=== PATIENT | female | born 1970 | race Caucasian/White ===

== ENCOUNTER 2020-11-18 05:51 | Inpatient (IN) ==
--- NOTE | 2020-11-04 10:33 | PAT Medication Instructions ---
Medication Instructions Date of Service November 04, 2020 Home Medications albuterol sulfate 1.25 mg INHALATION QID PRN albuterol sulfate 2 inh INHALATION Q4H PRN aspirin [Aspir-81] 81 mg PO QAM duloxetine [Cymbalta] 60 mg PO QAM fluticasone propion-salmeterol [Wixela Inhub] 1 inh INHALATION BID galcanezumab-gnlm [Emgality Syringe] 120 mg SUBCUT MONTHLY metoprolol succinate 50 mg PO QAM nifedipine [Procardia XL] 30 mg PO BID omeprazole 40 mg PO BID sumatriptan succinate 100 mg PO UD PRN topiramate [Topamax] 50 mg PO HS Continue as directed galcanezumab-gnlm [Emgality Syringe] 120 mg SUBCUT MONTHLY (unless otherwise instructed by your prescriber) Take morning of surgery With a small sip of water, OTHERWISE NOTHING TO EAT OR DRINK AFTER MIDNIGHT: albuterol sulfate 1.25 mg INHALATION QID PRN (if needed) albuterol sulfate 2 inh INHALATION Q4H PRN (if needed, and bring with you to the hospital) aspirin [Aspir-81] 81 mg PO QAM duloxetine [Cymbalta] 60 mg PO QAM fluticasone propion-salmeterol [Wixela Inhub] 1 inh INHALATION BID metoprolol succinate 50 mg PO QAM nifedipine [Procardia XL] 30 mg PO BID omeprazole 40 mg PO BID sumatriptan succinate 100 mg PO UD PRN (if needed) Take evening before surgery albuterol sulfate 1.25 mg INHALATION QID PRN (if needed) albuterol sulfate 2 inh INHALATION Q4H PRN (if needed) fluticasone propion-salmeterol [Wixela Inhub] 1 inh INHALATION BID nifedipine [Procardia XL] 30 mg PO BID omeprazole 40 mg PO BID sumatriptan succinate 100 mg PO UD PRN (if needed) topiramate [Topamax] 50 mg PO HS Other Notes If you have any questions please call us at [phone] or [phone] or [phone] or [phone]
--- NOTE | 2020-11-04 11:10 | Anesthesiology Consultation ---
Date of Service November 04, 2020 Assessment & Plan (1) Encounter for pre-operative examination: COVID Status: As of 11/04 assessment, patient denies travel to endemic area, known exposure/sick contacts, or symptoms of COVID19. Patient advised to adhere to social distancing guidelines, wear a mask in public and avoid large crowds or unnecessary travel in the 2 weeks leading up to surgery. Preoperative COVID19 testing to be completed prior to surgery per surgeon's arrangements -- done 11/16/20, NEGATIVE. Patient was encouraged to be extra cautious/conscientious with COVID precautions between COVID testing and surgery. PCP clearance 10/28/2020Weerin Hoffmann "was seen in my office on 11/05/2020 and is medically cleared for surgery." Cardiology Office note 02/2020 --"hypertension by history but with TTT in 2018 suggestive of neurocardiogenic syncope, with ongoing lightheadedness that does not occur strictly with position changes, will lower dose of nifedipine to 30 mg daily but also recommend referral for YONAS given ongoing fatigue and headaches. Chest painatypical, normal coronaries by cath 2014, likely musculoskeletal in nature. Palpitationsimproved but she has elevated pulse on exam today. With shortness of breath will obtain 24-hour Holter to rule out SVT." Multiple attempts to obtain Holter report unsuccessful. Pt cleared by PCP and had normal rate/rhythm on EKG 10/2020. Did report palpitations occasionally but correlated with panic/anxiety. Reviewed with AMANDA Tse to proceed. Chart Review Chart Review: Acceptable Risk for Surgery and Patient seen in Pre Admission Testing Teaching & Discussion Instructed NPO after midnight before surgery, except medications with 15 cc of water. Medication instructions provided according to the PAT guidelines. History Surgery Operation Date: 11/18/20 07:45 Proposed Procedures p L4-S1 Decompression Fusion, Spinal Cord Monitoring - Hawk Awad, Height/Weight Height: 5 ft 3 in Weight: 79.1 kg Allergies Allergy/AdvReac Type Severity Reaction Status Date / Time bee venom protein (honey bee) Allergy Severe Anaphylaxis Verified 11/04/20 08:53 latex Allergy Severe Anaphylaxis Verified 11/04/20 08:53 Sulfa (Sulfonamide Allergy Intermediate Hives Verified 11/04/20 08:53 Antibiotics) corn Allergy Mild "severe Verified 11/04/20 08:53 stomach pains" Medications Home Medications Medication Instructions Recorded Confirmed Last Taken albuterol sulfate 1.25 mg INHALATION QID PRN 11/04/20 11/04/20 Unknown albuterol sulfate 2 inh INHALATION Q4H PRN 11/04/20 11/04/20 Unknown aspirin [Aspir-81] 81 mg PO QAM 11/04/20 11/04/20 Unknown duloxetine [Cymbalta] 60 mg PO QAM 11/04/20 11/04/20 Unknown fluticasone propion-salmeterol 1 inh INHALATION BID 11/04/20 11/04/20 Unknown [Wixela Inhub] galcanezumab-gnlm [Emgality 120 mg SUBCUT MONTHLY 11/04/20 11/04/20 Unknown Syringe] metoprolol succinate 50 mg PO QAM 11/04/20 11/04/20 Unknown nifedipine [Procardia XL] 30 mg PO BID 11/04/20 11/04/20 Unknown omeprazole 40 mg PO BID 11/04/20 11/04/20 Unknown sumatriptan succinate 100 mg PO UD PRN 11/04/20 11/04/20 Unknown topiramate [Topamax] 50 mg PO HS 11/04/20 11/04/20 Unknown Past Medical History Medical History Anxiety Asthma Wixela inhaler daily. Albuterol prn once daily on avg, only uses neb in humid summer months. 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 x1 @ [facility] [place]--no stents History of cholecystectomy History of colonoscopy History of dilatation and curettage x2 History of esophagogastroduodenoscopy (EGD) History of lobectomy of lung (~2013) portion of right lung removed d/t "being necrotic d/t Jorge Luis's granulomatosis"--received 3 rounds of chemo after (pt denies cancer) done at [place] History of microdiscectomy (~1996) L5-S1 History of shoulder surgery left--ganglion tumor removed at age 14 History of sinus surgery x3 History of tonsillectomy History of wisdom tooth extraction Past Anesthesia History No Hx of Anesthesia Complications (other than nausea) and No Family Hx of Anesthesia Complications (other than nausea) History of PONV No Hx of Motion Sickness and History of PONV (nausea only) Social History Smoking Status: Former smoker Do You Dip or Chew Tobacco: No Smoking End Date: quit 2009 Hx Alcohol Use: No Hx Substance Use: Yes (medical marijuana) substance use type: marijuana Review of Systems Pt denies any recent chest pain, cough, fever, URI, or uncontrolled acid reflux (mostly controlled with meds). +yesterday panic attack/overheated with SOB/palpitations Physical Exam Vital Signs BP: 121/79 P: 81bpm SPO2: 98% RA T: 97.8 F R: 16 ENMT Mouth: + dental bridge (lower L side) and + dental restorations (one crown and a bridge); no chipped teeth and no loose teeth Thyromental Distance: > or= 3.5 Finger Breadths Mallampati Class: II Neck normal visual inspection; neck extension not limited Respiratory normal respiratory effort, lungs clear to auscultation + prolonged expiratory phase Cardiovascular RRR, no murmur, no edema Lab Results Anesthesia Preop Results Results Anesthesia Widget: WBC 5.71 K/uL (4.8-10.8) 11/04/20 Hgb 13.4 g/dL (12.0-16.0) 11/04/20 Hct 39.8 % (37-47) 11/04/20 Plt 365 K/uL (130-400) 11/04/20 Na 138 mmol/L (136-145) 11/04/20 K 4.0 mmol/L (3.5-5.1) 11/04/20 Cl 109 mmol/L (98-107) H 11/04/20 CO2 26 mmol/L (21-32) 11/04/20 BUN 13 mg/dl (7-18) 11/04/20 Creat 0.85 mg/dl (0.6-1.2) 11/04/20 Glucose Level 81 mg/dl (70-99) 11/04/20 PT 9.8 Seconds (9.0-12.0) 11/04/20 PTT 26.4 Seconds (21.0-31.0) 11/04/20 INR 1.0 (0.9-1.1) 11/04/20 Urine Color Dark Yellow 11/04/20 Urine Appearance Clear (Clear) 11/04/20 Urine pH 5.5 (4.5-7.5) 11/04/20 Urine Specific [place] 1.024 (1.000-1.030) 11/04/20 Urine Protein Negative (Negative) 11/04/20 Urine Glucose (UA) Negative (Negative) 11/04/20 Urine Ketones Trace (Negative) H 11/04/20 Urine Blood Negative (Negative) 11/04/20 Urine Nitrite Negative (Negative) 11/04/20 Urine Bilirubin Negative (Negative) 11/04/20 Urine Urobilinogen Negative (Negative) 11/04/20 Urine Leukocyte Esterase Negative (Negative) 11/04/20 Blood Type O Positive 11/04/20 Antibody Screen NEGATIVE 11/04/20 Testing Electrocardiogram Date: 11/04/20 Findings: + NSR @ (77bpm) Poor R wave progression, consider anterior NC vs lead placement vs LVH. "Cannot rule out anterior infarct" also noted on 06/21/20 EKG. 2015 cath showed angiographically normal coronaries. Chest X-Ray Date: 11/04/20 FINDINGS: PA and lateral chest radiographs are obtained. No prior studies are available for comparison at the time of dictation. The cardiomediastinal silhouette is unremarkable. Findings suggest emphysema. No airspace consolidation or pleural effusion is identified. Scarring/atelectasis is noted at the lung bases. Suture material projects over the right lung base. There is no pneumothorax. The skeletal structures are osteopenic. The bony thorax appears intact. Degenerative change and scoliosis is noted in the thoracic spine. Cholecystectomy clips are seen in the right upper quadrant. IMPRESSION: 1. No active disease in the chest. 2. Emphysematous change is suggested and there is postoperative change at the right lung base. Correlate with the patient's surgical history. {Pt did have 2014 lobectomy.} Cardiac Catheterization Date: 02/05/15 Angiographically normal coronary arteries, normal left ventriculogram.
[2020-11-18] MEDS ORDERED: ACETAMINOPHEN 500 MG TAB PO SCH (06:00)
[2020-11-18] MEDS ORDERED: CeleBREX 200 MG CAP PO SCH (06:00)
[2020-11-18] MEDS ORDERED: CLINDAMYCIN 600 MG/54 ML BAG IV SCH (06:00)
[2020-11-18] MEDS ORDERED: GABAPENTIN 900 MG DOSE PO SCH (06:00)
[2020-11-18] MEDS ORDERED: LR 15ML/HR IV SCH (06:00)
[2020-11-18] MEDS ORDERED: methylPREDNISolone 80 MG in SYRINGE 0 ML IV ONE (06:30)
[2020-11-18] MEDS ORDERED: diphenhydrAMINE 50 MG/ML VIAL IV ONE (06:30)
[2020-11-18] MEDS ORDERED: FAMOTIDINE 20 MG in SYRINGE 3 ML IV ONE (06:30)
[2020-11-18] MEDS ORDERED: BUPIVACAINE/EPINEPHRINE 0.5% MPF 1:200,000 30 ML VIAL ONE (07:08)
[2020-11-18] MEDS ORDERED: ONDANSETRON INJ 2 MG/ML 2 ML VIAL ONE ×2 (07:09→08:25)
[2020-11-18] MEDS ORDERED: GLYCOPYRROLATE 0.2 MG/ML VIAL ONE ×2 (07:09→08:25)
[2020-11-18] MEDS ORDERED: PROPOFOL IV EMULSION 10 MG/ML 20 ML VIAL IV ONE (07:09)
[2020-11-18] MEDS ORDERED: DEXAMETHASONE SOD INJ 4 MG/ML VIAL ONE (07:09)
[2020-11-18] MEDS ORDERED: LIDOCAINE 2% 2 ML VIAL/AMP(20MG/ML) INFIL ONE (07:09)
[2020-11-18] MEDS ORDERED: MIDAZOLAM HCL 1 MG/ML 2ML VIAL ONE (07:09)
[2020-11-18] MEDS ORDERED: fentaNYL citrate 100 MCG/2 ML VIAL ONE (07:09)
[2020-11-18] MEDS ORDERED: NEOSTIGMINE METHYLSULFATE 1 MG/ML 10ML VIAL ONE (07:09)
[2020-11-18] MEDS ORDERED: SODIUM CHLORIDE 0.9% INJ 10 ML VIAL ONE (07:10)
[2020-11-18] MEDS ORDERED: HYDROmorphone INJ 2 MG/ML SYR/VIAL ONE (07:10)
[2020-11-18] MEDS ORDERED: ATROPINE SULFATE 0.1 MG/ML 10ML SYR IV PRN (07:17)
[2020-11-18] MEDS ORDERED: ONDANSETRON INJ 2 MG/ML 2 ML VIAL IV PRN ×2 (07:17→10:43)
[2020-11-18] MEDS ORDERED: ePHEDrine sulfate 50 MG/ML AMP IV PRN (07:17)
[2020-11-18] MEDS ORDERED: HYDROmorphone INJ 1 MG/ML SYRINGE IV PRN (07:17)
[2020-11-18] MEDS ORDERED: MoRPHine SULFATE 10 MG/ML CARP/VIAL IV PRN (07:17)
--- NOTE | 2020-11-18 07:27 | History & Physical Bridge Note ---
Date of Service November 18, 2020 History & Physical Bridge Note I have examined the patient, reviewed the History & Physical and in the interval since the performance of the History & Physical I have noted the following changes of clinical significance: no changes noted
--- NOTE | 2020-11-18 07:28 | History & Physical Report ---
Date of Service November 18, 2020 Assessment & Plan (1) Neurogenic claudication due to lumbar spinal stenosis: Admission and Anticipated Discharge Date Admission Date: L4-S1 decompression fusion History of Present Illness Chief Complaint: Back and leg pain Primary Care Provider: Alvaro Mark This is a 50-year-old female presents with chronic persistent back and leg pain. Failing extensive course of nonoperative care is here for surgical invention. Allergies Allergy/AdvReac Type Severity Reaction Status Date / Time bee venom protein (honey bee) Allergy Severe Anaphylaxis Verified 11/18/20 06:28 latex Allergy Severe Anaphylaxis Verified 11/18/20 06:28 Sulfa (Sulfonamide Allergy Intermediate Hives Verified 11/18/20 06:28 Antibiotics) corn Allergy Mild "severe Verified 11/18/20 06:28 stomach pains" Home Medications Medication Instructions Recorded Confirmed Type albuterol sulfate 1.25 mg INHALATION QID PRN 11/04/20 11/18/20 History albuterol sulfate 2 inh INHALATION Q4H PRN 11/04/20 11/18/20 History aspirin [Aspir-81] 81 mg PO QAM 11/04/20 11/18/20 History duloxetine [Cymbalta] 60 mg PO QAM 11/04/20 11/18/20 History fluticasone propion-salmeterol 1 inh INHALATION BID 11/04/20 11/18/20 History [Wixela Inhub] galcanezumab-gnlm [Emgality 120 mg SUBCUT MONTHLY 11/04/20 11/18/20 History Syringe] metoprolol succinate 50 mg PO QAM 11/04/20 11/18/20 History nifedipine [Procardia XL] 30 mg PO BID 11/04/20 11/18/20 History omeprazole 40 mg PO BID 11/04/20 11/18/20 History sumatriptan succinate 100 mg PO UD PRN 11/04/20 11/18/20 History topiramate [Topamax] 50 mg PO HS 11/04/20 11/18/20 History Past Med/Surg History Medical History Anxiety Asthma Wixela inhaler daily. Albuterol prn once daily on avg, only uses neb in humid summer months. 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 Xena Dardenr's granulomatosis Surgical History History of bilateral tubal ligation History of breast biopsy benign History of bunionectomy of left great toe History of bunionectomy of right great toe History of cardiac cath 2016? x1 @ [facility] [place]--no stents History of cholecystectomy History of colonoscopy History of dilatation and curettage x2 History of esophagogastroduodenoscopy (EGD) History of lobectomy of lung (~2013) portion of right lung removed d/t "being necrotic d/t Jorge Luis's granulomatosis"--received 3 rounds of chemo after (pt denies cancer) done at [place] History of microdiscectomy (~1996) L5-S1 History of shoulder surgery left--ganglion tumor removed at age 14 History of sinus surgery x3 History of tonsillectomy History of wisdom tooth extraction Family History Sister Family history of reaction to anesthesia nausea/vomiting Sister Family history of reaction to anesthesia nausea/vomiting Grandfather (Maternal) Family history of diabetes mellitus Social History Smoking Status: Former smoker Smoking End Date: quit 2009; Second Hand Exposure: Yes (grandma smoked); Do You Dip or Chew Tobacco: No; Tobacco Cessation Education Requested by Patient: No Hx Alcohol Use: No Hx Substance Use: Yes (medical marijuana) Preferred Language: [place]al[place] Communication Ability: Effective Promotions Assistant Required: No Beliefs That Will Affect Care: None Current Living Situation: Spouse and Family Current Living Situation Comment: Lives with and daughter and daughter's fiance Other Information That Helps Us Care for You: No Feels Safe at Home: Yes Safety Concerns: Feels Safe At This Time Assistive Devices: Cane, Glasses and Nebulizer Assistive Devices Comment: reading glasses Physical Exam Physical Exam: Patient is alert and oriented Heart regular in rhythm Lungs clear to auscultation Results & Data ([facility]) Vital Signs (Past 12 Hours) Vital Signs Temp Pulse Resp BP Pulse Ox 11/18/20 06:34 36.8 C 84 20 128/86 98
[2020-11-18] MEDS ORDERED: PHENYLEPHRINE 100MCG/ML 5ML SYR ONE (08:54)
[2020-11-18] MEDS ORDERED: ROCURONIUM BROMIDE 10 MG/ML 5 ML VIAL IV ONE (08:54)
[2020-11-18] MEDS ORDERED: PHENYLEPHRINE HCL 10 MG/ML VIAL ONE (08:54)
[2020-11-18] MEDS ORDERED: LARYING-O-JET KIT (LTA) ONE (08:54)
[2020-11-18] MEDS ORDERED: FLOSEAL HEMOSTATIC MATRIX 10ML TOP ONE (09:48)
--- NOTE | 2020-11-18 10:02 | Operative Report ---
Post Operative Report Pre & Post Diagnosis Operation Date: 11/18/20 07:45 Pre-Op Diagnosis: Spinal Stenosis Lumbar Region without Neurogenic Post-Op Diagnosis: Spinal Stenosis Lumbar Region without Neurogenic I identified the patient and participated in the time-out.: Yes Procedure Operation Date: 11/18/20 07:45 Actual procedure #1 revision decompression with bilateral medial facetectomies and foraminotomies L3-4, L4-5 and L5-S1. #2 posterior spinal fusion L4-5 L5-S1. #3 placement posterior instrumentation L4-5 L5-S1. #4 interbody fusion L4-5 L5-S1. #5 placement peek cage 11 x 22 mm at L for L5 and 12 x 22 mm at L5-S1. #6 placement locally harvested morselized autograft in the posterior gutters. #7 placement of I factor in the interbody space and posterior lateral gutters combined with Vitoss Surgeon Hawk Awad, DO Printing Services Coordinator Christy Davis Estimated Blood Loss 250 Findings See Below The patient is 5 feet 2 inches tall weighing over 79 kg with a BMI of 31. Patient's body habitus did contribute to significant technical difficulty requiring her deeper retractors and longer instruments. This at least 25% increase to the operative time. Specimens None Indications This is a 50-year-old female presents with above-mentioned diagnosis after failing course of nonoperative care is here for the above-mentioned procedure. Description of Procedure Patient met with identified informed consent obtained. Patient was then taken to the operative suite underwent ablation placed in a prone position the Jovanny table top Sabino frame. All bony prominences well-padded eyes inspected to ensure no external pressure placed upon the. This point the lumbar spine was prepped and draped in normal sterile fashion. Utilizing the previous incision site sharp dissection with the assistance of Bovie cautery performed down to and exposing the remaining lamina and transverse processes of L4-L5 and sacral ala bilaterally. From caudal cephalad fashion revision complete laminectomy L5 L4 partial laminectomy L3 was performed including bilateral medial facetectomies and foraminotomies addressing severe spinal stenosis. Pedicle screws then placed in L4-L5 and S1 levels with the assistance of fluoroscopy the proper sized fernando placed. I did elect to forego the pedicle screw on the left at L5. Appropriate sized rods were then placed. By way of a transforaminal portion right complete discectomy of L5-S1 was performed endplates curetted to subcortically bone and a 12 x 22 mm peek cage filled I factor tapped in position. Then proceeded L4-L5 and again by way of a transforaminal portion right a complete discectomy was performed endplates curetted to subcortically bone and 11 x 22 mm peek cage filled with I factor tapped in position. The rods were then locked in final position bilaterally. A cross-link was locked into position. Transverse processes of L4-L5 and the sacral ala burred to subcortical bleeding bone. I factor combined with the toss and locally harvested morselized autograft was placed in the posterior gutters. 15 round LAKISHA drain inserted. The incision was then closed with 1 Vicryl to fascia 2-0 Vicryl subcutaneously and 4 Monocryl for final skin closure. Steri-Strip sterile dressings placed. Patient will continue PACU stable condition. Please note spinal cord monitoring visualized at the procedure no changes noted. Ximena Davis was present at the entire surgery involved the patient positioning complex portions of the surgery and final skin closure. I attest to the content of the Intraoperative Record and any orders documented therein. Any exceptions are noted below.
[2020-11-18] MEDS ORDERED: METOCLOPRAMIDE HCL INJ 5 MG/ML 2 ML VIAL IV PRN (10:43)
[2020-11-18] MEDS ORDERED: LORazepam 0.5 MG/1 ML VIAL IV PRN (10:43)
[2020-11-18] MEDS ORDERED: HYDROmorphone INJ 0.5 MG/0.5 ML SYR IV PRN (10:43)
[2020-11-18] MEDS ORDERED: DO NOT ADMINISTER PNEUMOCOCCAL VACCINE PRN (10:43)
[2020-11-18] MEDS ORDERED: DO NOT ADMINISTER FLU VACCINE PRN (10:43)
[2020-11-18] MEDS ORDERED: ACETAMINOPHEN 500 MG TAB PO PRN (10:43)
[2020-11-18] MEDS ORDERED: ACETAMINOPHEN 1,000 MG/100 ML VIAL IV PRN (10:43)
[2020-11-18] MEDS ORDERED: FAMOTIDINE 20 MG TAB PO PRN (10:43)
[2020-11-18] MEDS ORDERED: SUMAtriptan succinate 100 MG TAB PO PRN (10:43)
[2020-11-18] MEDS ORDERED: MAGNESIUM HYDROXIDE SUSP 30 ML UDC PO PRN (10:43)
[2020-11-18] MEDS ORDERED: diphenhydrAMINE Capsule 25 MG CAP PO PRN (10:43)
[2020-11-18] MEDS ORDERED: SOD PHOSPHATE/SOD BIPHOSPHATE ENEMA 132 ML BTL PR PRN (10:43)
[2020-11-18] MEDS ORDERED: PROMETHAZINE HCL 12.5 MG in SODIUM CHLORIDE 0.9% 50 ML IV PRN (10:43)
[2020-11-18] MEDS ORDERED: hydrOXYzine HCl 25 MG TAB PO PRN (10:43)
[2020-11-18] MEDS ORDERED: ALUMINUM/MAGNESIUM SUSP 30 ML UDC PO PRN (10:43)
[2020-11-18] MEDS ORDERED: NALOXONE HCL 0.4 MG/1 ML VIAL/CARP IV PRN (10:43)
[2020-11-18] MEDS ORDERED: ONDANSETRON 4 MG OD TAB PO PRN (10:43)
[2020-11-18] MEDS ORDERED: ALBUTEROL HFA 8 GM INHALER INH PRN (10:59)
--- NOTE | 2020-11-18 10:59 | Anesthesiology Progress Note ---
Date of Service November 18, 2020 Anesthesia Post Procedure Vital Signs Vital Signs: Temp Pulse Pulse Resp BP BP Pulse Ox 11/18/20 10:55 97 H 14 103/70 96 11/18/20 10:45 90 20 97/60 L 98 11/18/20 10:35 95 H 12 96/61 L 99 11/18/20 10:25 94 H 16 98/67 L 99 11/18/20 10:19 36.1 C L 98 H 15 103/68 96 11/18/20 06:34 36.8 C 84 20 128/86 98 Transfer of Care Handoff Completed per policy Notes Mental Status: alert / awake / arousable and participated in evaluation Patient Amnestic to Procedure: Yes Nausea / Vomiting: adequately controlled Pain: adequately controlled Airway Patency, RR, SpO2: stable & adequate BP & HR: stable & adequate Hydration State: stable & adequate Anesthetic Complications: no major complications apparent and Pt Satisfied with anesthetic care
--- NOTE | 2020-11-18 11:07 | Fluoroscopy Report ---
FL lumbar spine 2-3V HISTORY: 50 years-old Female L4-S1 DECOMPRESSION/FUSION/INTERBODY COMPARISON: None TECHNIQUE: 2 views of the lumbar spine FINDINGS: Laminectomy with posterior interbody fernando and screw fusion and discectomy at L4-S1. The hardware appea rs intact. Linear radiodense structure projects in the surgical bed at L5-S1. Technologist reports th at the surgeon is aware. IMPRESSION: Fluoroscopic assistance as above. ACT 112: Negative or not required by law. The above report was generated using voice recognition software. It may contain grammatical, syntax o r spelling errors. Electronically signed by: Lino Sanches M.D. 11/18/2020 11:05 AM
[2020-11-18] MEDS: LACTATED RINGER'S 1,000 ML IV SCH (11:31)
[2020-11-18] MEDS ORDERED: ALBUTEROL 0.083% NEBU SOLN 3 ML VIAL NEB PRN (11:36)
[2020-11-18] MEDS: KETOROLAC TROMETHAMINE 15 MG/ML VIAL IV SCH ×2 (11:59→18:26)
--- NOTE | 2020-11-18 13:02 | Hospitalist Consultation ---
Date of Consultation November 18, 2020 Assessment & Plan (1) S/P spinal surgery: This is a 50yo F with a PMH of COPD, asthma, mood disorder, Jorge Luis's granulomatosis and other medical problems listed below who is POD#0 s/p revision decompression with bilateral medial facetectomies and foraminotomies L3-4, L4-5 and L5-S1 and posterior spinal fusion L4-5 L5-S1 by Dr. Awad. POD#0 s/p revision decompression with bilateral medial facetectomies and foraminotomies L3-4, L4-5 and L5-S1 and posterior spinal fusion L4-5 L5-S1 by Dr. Awad. Per ortho for pain control, wound care, anticoagulation and activities Monitor H&H (EBL: 250ml, pre-op hgb 13.4) Continue incentive spirometry, PT/OT when appropriate (2) Hypertension: Hypotensive at 95/66 post-operatively. Continue Toprol, Procardia with hold parameters (3) Chronic obstructive pulmonary disease: (4) Asthma: H/o tobacco use x 10 years, has since quit. Continue Wixela inh BID, albuterol inh and nebs PRN (5) Jorge Luis's granulomatosis: Follows with Dr. Alcantar, rheumatology in [place] (6) Migraine: Topomax HS and monthly Emgality injections for prophylaxis, sumatriptan PRN (7) Depression: (8) Anxiety: Continue duloxetine PCP: eDedee Kerns) Dispo: Per ortho Patient seen in collaboration with Dr. Bui. Please see addendum. Thank you for this consultation. We will follow the patient with you during their hospital stay. You can reach a member of the [facility] Hospitalist Team 01/01 via [place] Text. Supervising Physician Co-Signing Physician Notes 50yo F with a PMH of COPD, asthma, mood disorder, Jorge Luis's granulomatosis and other medical problems who is POD#0 s/p revision decompression with bilateral medial facetectomies and foraminotomies L3-4, L4-5 and L5-S1 and posterior spinal fusion L4-5 L5-S1 by Dr. Awad today History and physical exam performed by me Detailed by Anaid Rivera PA-C Patient currently has no complaint Reports some paraesthesia in left LE but no pain at surgical site at this point Op site management per Ortho BP running low normal Hold antihypertensives for today and resume tomorrow Continue IVF Pain control per ortho Keep nation in for today Other plans as detailed by Anaid Rivera PA-C History of Present Illness Reason for Consultation: post op medical mgmt Attending Physician: Hawk Awad DO History of Present Illness This is a 50yo F with a PMH of COPD, asthma, mood disorder, Jorge Luis's granulomatosis and other medical problems listed below who is POD#0 s/p revision decompression with bilateral medial facetectomies and foraminotomies L3-4, L4-5 and L5-S1 and posterior spinal fusion L4-5 L5-S1 by Dr. Awad. Feeling very lethargic postoperatively. Was premedicated for anaphylactic Lasix allergy prior to surgery. Per nursing staff, patient is much more alert than when she initially came to the floor. Able to open eyes and answer questions appropriately during interview. Denies any surgical site pain. No pain or paresthesias in distal lower extremities. Denies any chest pain or shortness of breath. Not much of an appetite at this point was able take a few bites of lunch. No fever, chills, headache, palpitations, nausea, vomiting, abdominal pain, dysuria, diarrhea constipation. Receives primary care from Dr. Mark based in [place]. Allergies Allergy/AdvReac Type Severity Reaction Status Date / Time bee venom protein (honey bee) Allergy Severe Anaphylaxis Verified 11/18/20 06:28 latex Allergy Severe Anaphylaxis Verified 11/18/20 06:28 Sulfa (Sulfonamide Allergy Intermediate Hives Verified 11/18/20 06:28 Antibiotics) corn Allergy Mild "severe Verified 11/18/20 06:28 stomach pains" Home Medications Medication Instructions Recorded Confirmed Type albuterol sulfate 1.25 mg INHALATION QID PRN 11/04/20 11/18/20 History albuterol sulfate 2 inh INHALATION Q4H PRN 11/04/20 11/18/20 History aspirin [Aspir-81] 81 mg PO QAM 11/04/20 11/18/20 History duloxetine [Cymbalta] 60 mg PO QAM 11/04/20 11/18/20 History fluticasone propion-salmeterol 1 inh INHALATION BID 11/04/20 11/18/20 History [Wixela Inhub] galcanezumab-gnlm [Emgality 120 mg SUBCUT MONTHLY 11/04/20 11/18/20 History Syringe] metoprolol succinate 50 mg PO QAM 11/04/20 11/18/20 History nifedipine [Procardia XL] 30 mg PO BID 11/04/20 11/18/20 History omeprazole 40 mg PO BID 11/04/20 11/18/20 History sumatriptan succinate 100 mg PO UD PRN 11/04/20 11/18/20 History topiramate [Topamax] 50 mg PO HS 11/04/20 11/18/20 History Patient History Medical History Anxiety Asthma Wixela inhaler daily. Albuterol prn once daily on avg, only uses neb in humid summer months. Chronic back pain Chronic obstructive pulmonary disease Depression Hearing loss in right ear History of pancreatitis d/t excessive alcohol consumption of "wine with sulfates"--no issues now History of pulmonary embolus (PE) 2013 after lung lobectomy surgery--was on coumadin/lovenox for a year after History of thyroid nodule just monitoring Hypertension Idiopathic peripheral neuropathy Medical marijuana use for chronic back pain Migraine Migraine Nausea and vomiting after administration of anesthetic agent Scoliosis Tachycardia per pt d/t jorge luis's granulomatosis--follows with Dr. Xena Dardenr's granulomatosis Surgical History History of bilateral tubal ligation History of breast biopsy benign History of bunionectomy of left great toe History of bunionectomy of right great toe History of cardiac cath 2016? x1 @ [facility] [place]--no stents History of cholecystectomy History of colonoscopy History of dilatation and curettage x2 History of esophagogastroduodenoscopy (EGD) History of lobectomy of lung (~2013) portion of right lung removed d/t "being necrotic d/t Jorge Luis's granulomatosis"--received 3 rounds of chemo after (pt denies cancer) done at [place] History of microdiscectomy (~1996) L5-S1 History of shoulder surgery left--ganglion tumor removed at age 14 History of sinus surgery x3 History of tonsillectomy History of wisdom tooth extraction Family History Sister Family history of reaction to anesthesia nausea/vomiting Sister Family history of reaction to anesthesia nausea/vomiting Grandfather (Maternal) Family history of diabetes mellitus Social History Smoking Status: Former smoker Smoking End Date: quit 2009; Second Hand Exposure: Yes (grandma smoked); Do You Dip or Chew Tobacco: No; Tobacco Cessation Education Requested by Patient: No Hx Alcohol Use: No Hx Substance Use: Yes (medical marijuana) Preferred Language: Tajik Communication Ability: Effective Health Care Sanitary Technician Required: No Beliefs That Will Affect Care: None Current Living Situation: Spouse and Family Current Living Situation Comment: Lives with and daughter and daughter's fiance Other Information That Helps Us Care for You: No Feels Safe at Home: Yes Safety Concerns: Feels Safe At This Time Assistive Devices: Cane, Glasses and Nebulizer Assistive Devices Comment: reading glasses Review of Systems Review of Systems: At least ten systems reviewed and negative except as noted in the HPI. Physical Exam Physical Exam: General Appearance: vitals as above, lying in bed, pleasant but groggy, conversing easily and answering questions appropriately Head: normocephalic, atraumatic Eyes: normal inspection, PERRL, conjunctivae normal, anicteric sclerae ENT: external ear and nose normal, oropharynx normal Neck: normal visual inspection, trachea midline, no thyromegaly Respiratory: normal respiratory effort, lungs clear to auscultation, no wheeze, rales, rhonchi. No accessory muscle use Cardiovascular: tachycardic rate, regular rhythm, no murmur appreciated, normal peripheral pulses, no BLE edema Abdomen/GI: normal bowel sounds, soft, nontender, no hepatosplenomegaly Extremities/Musculoskeletal: +Spinal dressing c/d/i. LAKISHA drain visualized. No cyanosis or clubbing, extremities motor strength 5/5 Neurologic: PERRL, CN's II-XI intact bilaterally and moves all extremities Psychiatric: A+Ox3, euthymic affect Skin: no rashes, normal color, warm/dry Results & Data Results & Data ([facility]) Vital Signs (Past 12 Hours) Vital Signs Temp Pulse Pulse Resp BP BP Pulse Ox 11/18/20 11:55 36.3 C L 85 14 100/66 97 11/18/20 11:24 36.3 C L 96 H 14 110/68 96 11/18/20 11:04 36.4 C L 90 16 97/68 L 94 11/18/20 10:55 97 H 14 103/70 96 11/18/20 10:45 90 20 97/60 L 98 11/18/20 10:35 95 H 12 96/61 L 99 11/18/20 10:25 94 H 16 98/67 L 99 11/18/20 10:19 36.1 C L 98 H 15 103/68 96 11/18/20 06:34 36.8 C 84 20 128/86 98 Laboratory Results Short CBC 11/18/20 11/18/20 11/18/20 Range/Units 06:16 06:16 06:18 COVID-19 Eval Order Covid19 [facility] SARS-CoV-2, RNA, NAAT NEGATIVE (NEGATIVE) Blood Type O Positive Antibody Screen NEGATIVE Crossmatch See Detail Diagnostic Findings Lumbar Spine X-Ray 11/18/20 07:45 FL lumbar spine 2-3V HISTORY: 50 years-old Female L4-S1 DECOMPRESSION/FUSION/INTERBODY COMPARISON: None TECHNIQUE: 2 views of the lumbar spine FINDINGS: Laminectomy with posterior interbody fernando and screw fusion and discectomy at L4- S1. The hardware appears intact. Linear radiodense structure projects in the surgical bed at L5-S1. Technologist reports that the surgeon is aware. IMPRESSION: Fluoroscopic assistance as above. ACT 112: Negative or not required by law. The above report was generated using voice recognition software. It may contain grammatical, syntax or spelling errors. Electronically signed by: Lino Sanches M.D. 11/18/2020 11:05 AM
[2020-11-18] MEDS: ceFAZolin 2000MG 2,000 MG/15 ML SYR IV SCH (16:40)
[2020-11-18] MEDS: oxyCODONE HCL IR 5 MG TAB (IMMEDIATE RELEASE) PO PRN (20:02)
[2020-11-18] MEDS: TOPIRAMATE 50 MG TAB PO SCH (20:04)
[2020-11-18] MEDS: PANTOprazole 40 MG TAB PO SCH (20:04)
[2020-11-18] MEDS ORDERED: NIFEdipine EXTENDED REL 30 MG TABCR PO SCH (21:00)
[2020-11-18] MEDS: DOCUSATE SODIUM/SENNA 50/8.6MG TAB PO SCH (21:47)
[2020-11-19] MEDS: KETOROLAC TROMETHAMINE 15 MG/ML VIAL IV SCH ×2 (00:36→05:37)
[2020-11-19] MEDS: LACTATED RINGER'S 1,000 ML IV SCH ×2 (00:36→06:12)
[2020-11-19] MEDS: ceFAZolin 2000MG 2,000 MG/15 ML SYR IV SCH (00:36)
[2020-11-19] MEDS: oxyCODONE HCL IR 5 MG TAB (IMMEDIATE RELEASE) PO PRN ×3 (04:31→17:58)
[2020-11-19] MEDS: POLYETHYLENE (MIRALAX) 17 GM PACK PO SCH ×4 (05:37→23:47)
[2020-11-19 06:28] LABS: Basophils # (auto) 0.03 K/uL (0-0.2); Basophils % (auto) 0.3 %; Eosinophils # (auto) 0.01 K/uL (0-0.5); Eosinophils % (auto) 0.1 %; Hemoglobin 9.9 g/dL (12.0-16.0); Immature Granulocytes # (auto) 0.04 K/uL (0.00-0.02); Immature Granulocytes % (auto) 0.4 %; Lymphocytes # (auto) 1.79 K/uL (1.2-3.4); Lymphocytes % (auto) 15.7 %; Mean Corpuscular Hemoglobin 29.6 pg (25-34); Mean Corpuscular Volume 89.8 fL (80-100); Mean Platelet Volume 9.8 fL (7.4-10.4); Monocytes # (auto) 1.16 K/uL (0.11-0.59); Monocytes % (auto) 10.2 %; Neutrophils # (auto) 8.37 K/uL (1.4-6.5); Neutrophils % (auto) 73.3 %; Platelet Count 279 K/uL (130-400); RDW Coefficient of Variation 13.8 % (11.5-14.5); RDW Standard Deviation 45.7 fL (36.4-46.3); Red Blood Count 3.34 M/uL (4.2-5.4)
[2020-11-19 06:53] LABS: BUN Creatinine Ratio 14.6 (10-20); Calcium 8.3 mg/dl (8.5-10.1); Creatinine Clr Calc Pharmacy 82.1 ml/min; Est GFR (African American) 98.2 ml/min; Est GFR (Non-African American) 84.8 ml/min; Potassium 3.6 mmol/L (3.5-5.1)
[2020-11-19] MEDS: NIFEdipine EXTENDED REL 30 MG TABCR PO SCH ×2 (08:21→21:27)
[2020-11-19] MEDS: ASPIRIN 81 MG ECTAB PO SCH (08:22)
[2020-11-19] MEDS: DULoxetine HCL 60 MG CAP PO SCH (08:24)
[2020-11-19] MEDS: METOPROLOL SUCC 50MG EXT REL TAB PO SCH (08:25)
[2020-11-19] MEDS: PANTOprazole 40 MG TAB PO SCH ×2 (08:26→21:28)
[2020-11-19] MEDS: FLUTICASONE/VILANTEROL 200/25MCG 14 PUFFS/INHALER INH SCH (10:26)
[2020-11-19] MEDS: LORazepam 0.5 MG TAB PO PRN (11:49)
--- NOTE | 2020-11-19 11:51 | Hospitalist Progress Note ---
Date of Service November 19, 2020 Assessment & Plan (1) S/P spinal surgery: 50yo F with a PMH of COPD, asthma, mood disorder, Jorge Luis's granulomatosis and other medical problems listed below who is s/p revision decompression with bilateral medial facetectomies and foraminotomies L3-4, L4-5 and L5-S1 and posterior spinal fusion L4-5 L5-S1 by Dr. Awad. POD #1 S/p revision decompression with bilateral medial facetectomies and foraminotomies L3-4, L4-5 and L5-S1 and posterior spinal fusion L4-5 L5-S1 by Dr. Awad. Per ortho for pain control, wound care, anticoagulation and activities Anemia likely due to acute blood loss + dilutional from IVF Hb 9.9 today (was 13.4 on 11/04/20) Monitor Hemoglobin (2) Hypertension: Controlled Continue home medications [metoprolol and nifedipine] (3) Chronic obstructive pulmonary disease: (4) Asthma: H/o tobacco use x 10 years, has since quit. Continue Wixela inh BID, albuterol inh and nebs PRN (5) Jorge Luis's granulomatosis: Follows with Dr. Alcantar, rheumatology in [place] (6) Migraine: Topomax HS and monthly Emgality injections for prophylaxis, sumatriptan PRN (7) Depression: (8) Anxiety: Continue duloxetine Admission and Anticipated Discharge Date Admission Date: November 18, 2020 Subjective Patient seen and examined. Reports only low back pain and tightness Denies nausea, vomiting. Passing flatus. Yet to move bowel. Denies any chest pain, cough, shortness of breath Denies any abdominal pain Denies dysuria, frequency, urgency Review of Systems Review of Systems: All systems reviewed & are unremarkable except as noted in Subjective Physical Exam Constitutional: + well hydrated and + obese; no acute distress Eyes: PERRL, conjunctivae normal, anicteric sclerae ENMT: external ear and nose normal, oropharynx normal Respiratory: normal respiratory effort, lungs clear to auscultation Cardiovascular: Rate/Rhythm: regular rate and regular rhythm S1 S2. No pedal edema Gastrointestinal (Abdomen): normal bowel sounds, soft, nontender, no hepatosplenomegaly Musculoskeletal: Clean dressing over lower back with drain in situ containing serosanguineous fluid Neurologic: PERRL, EOMI, accommodation nl, no face palsy, no dysarthria Psychiatric: A+Ox3, euthymic affect Results & Data Results & Data ([facility]) Vital Signs (Past 12 Hours) Vital Signs Temp Pulse Pulse Resp BP BP Pulse Ox 11/19/20 07:28 36.7 C 72 18 125/78 99 11/19/20 02:14 36.4 C L 74 20 113/67 96 11/19/20 01:23 80 120/77 Laboratory Results Abnormal lab results 11/19/20 11/19/20 Range/Units 05:59 05:59 WBC 11.40 H (4.8-10.8) K/uL RBC 3.34 L (4.2-5.4) M/uL Hgb 9.9 L (12.0-16.0) g/dL Hct 30.0 L (37-47) % Neut # (Auto) 8.37 H (1.4-6.5) K/uL [place] # (Auto) 1.16 H (0.11-0.59) K/uL Immature Gran # (Auto) 0.04 H (0.00-0.02) K/uL Chloride 112 H (98-107) mmol/L Glucose 105 H (70-99) mg/dl Calcium 8.3 L (8.5-10.1) mg/dl
[2020-11-19] MEDS: HYDROmorphone INJ 1 MG/ML SYRINGE IV PRN ×4 (11:53→23:46)
--- NOTE | 2020-11-19 13:12 | Orthopedic Progress Note ---
Date of Service November 19, 2020 Assessment & Plan (1) Neurogenic claudication due to lumbar spinal stenosis: Admission and Anticipated Discharge Date Admission Date: November 18, 2020 At this time we will continue physical therapy monitor LAKISHA output hopefully discharge home this weekend Subjective Back pain is controlled leg pain markedly improved Physical Exam Physical Exam: Patient is ambulating in the room. She is good strength testing. Results & Data ([facility]) Vital Signs (Past 12 Hours) Vital Signs Temp Pulse Pulse Resp BP BP Pulse Ox 11/19/20 10:00 36.7 C 84 18 127/84 97 11/19/20 07:28 36.7 C 72 18 125/78 99 11/19/20 02:14 36.4 C L 74 20 113/67 96 11/19/20 01:23 80 120/77
[2020-11-19] MEDS: traMADol HCL 50 MG TABLET PO PRN (15:34)
[2020-11-19] MEDS: DOCUSATE SODIUM/SENNA 50/8.6MG TAB PO SCH (21:27)
[2020-11-19] MEDS: TOPIRAMATE 50 MG TAB PO SCH (21:27)
[2020-11-20] MEDS: HYDROmorphone INJ 1 MG/ML SYRINGE IV PRN ×5 (03:40→22:13)
[2020-11-20] MEDS: POLYETHYLENE (MIRALAX) 17 GM PACK PO SCH ×4 (06:10→23:57)
[2020-11-20] MEDS: dexAMETHasone 8 MG in SYRINGE 0 ML IV SCH (08:24)
[2020-11-20] MEDS: oxyCODONE HCL IR 5 MG TAB (IMMEDIATE RELEASE) PO PRN (08:24)
[2020-11-20] MEDS: DULoxetine HCL 60 MG CAP PO SCH (08:29)
[2020-11-20] MEDS: ASPIRIN 81 MG ECTAB PO SCH (08:29)
[2020-11-20] MEDS: PANTOprazole 40 MG TAB PO SCH ×2 (08:29→20:32)
[2020-11-20] MEDS: METOPROLOL SUCC 50MG EXT REL TAB PO SCH (08:31)
[2020-11-20] MEDS: NIFEdipine EXTENDED REL 30 MG TABCR PO SCH ×3 (08:32→20:30)
[2020-11-20] MEDS ORDERED: bisacodyL 10 MG SUPP PR PRN (10:03)
--- NOTE | 2020-11-20 10:55 | Orthopedic Progress Note ---
Date of Service November 20, 2020 Assessment & Plan (1) Neurogenic claudication due to lumbar spinal stenosis: Admission and Anticipated Discharge Date Admission Date: November 18, 2020 At this time we will continue physical therapy monitor LAKISHA output anticipate discharge home Sunday or Sunday. Subjective Back pain controlled leg pain improved Physical Exam Physical Exam: Patient is good strength testing appears comfortable. Results & Data ([facility]) Vital Signs (Past 12 Hours) Vital Signs Temp Pulse Resp BP Pulse Ox 11/20/20 07:37 37.3 C 116 H 18 112/65 93 11/19/20 23:02 36.9 C 96 H 20 112/70 92
[2020-11-20] MEDS: FLUTICASONE/VILANTEROL 200/25MCG 14 PUFFS/INHALER INH SCH (12:27)
[2020-11-20] MEDS: traMADol HCL 50 MG TABLET PO PRN (13:21)
--- NOTE | 2020-11-20 13:38 | Hospitalist Progress Note ---
Date of Service November 20, 2020 Assessment & Plan (1) S/P spinal surgery: 50yo F with a PMH of COPD, asthma, mood disorder, Jorge Luis's granulomatosis and other medical problems listed below who is s/p revision decompression with bilateral medial facetectomies and foraminotomies L3-4, L4-5 and L5-S1 and posterior spinal fusion L4-5 L5-S1 by Dr. Awad. POD #2 S/p revision decompression with bilateral medial facetectomies and foraminotomies L3-4, L4-5 and L5-S1 and posterior spinal fusion L4-5 L5-S1 by Dr. Awad. Per ortho for pain control, wound care, anticoagulation and activities Anemia likely due to acute blood loss + dilutional from IVF Hb 10.7 today (was 13.4 on 11/04/20) (2) Hypertension: Controlled Continue home medications [metoprolol and nifedipine] (3) Chronic obstructive pulmonary disease: (4) Asthma: H/o tobacco use x 10 years, has since quit. Continue Wixela inh BID, albuterol inh and nebs PRN (5) Jorge Luis's granulomatosis: Follows with Dr. Alcantar, rheumatology in [place] (6) Migraine: Topomax HS and monthly Emgality injections for prophylaxis, sumatriptan PRN (7) Depression: (8) Anxiety: Continue duloxetine Admission and Anticipated Discharge Date Admission Date: November 18, 2020 Subjective Patient seen and examined. Reports only low back pain which is currently controlled Passing flatus. Has not had a bowel movement Denies any chest pain, cough, shortness of breath Denies any abdominal pain, nausea, vomiting Denies dysuria, frequency, urgency Review of Systems Review of Systems: All systems reviewed & are unremarkable except as noted in Subjective Physical Exam Constitutional: + well hydrated and + obese; no acute distress Eyes: PERRL, conjunctivae normal, anicteric sclerae ENMT: external ear and nose normal, oropharynx normal Respiratory: normal respiratory effort, lungs clear to auscultation Cardiovascular: Rate/Rhythm: regular rate and regular rhythm S1 S2 Gastrointestinal (Abdomen): normal bowel sounds, soft, nontender, no hepatosplenomegaly Musculoskeletal: Clean dressing over lower back with LAKISHA drain in situ Neurologic: PERRL, EOMI, accommodation nl, no face palsy, no dysarthria Psychiatric: A+Ox3, euthymic affect Results & Data Results & Data ([facility]) Vital Signs (Past 12 Hours) Vital Signs Temp Pulse Resp BP Pulse Ox 11/20/20 07:37 37.3 C 116 H 18 112/65 93 Laboratory Results Abnormal lab results 11/18/20 11/20/20 Range/Units 06:18 08:01 Hgb 10.7 L (12.0-16.0) g/dL Crossmatch See Detail
[2020-11-20] MEDS: DOCUSATE SODIUM/SENNA 50/8.6MG TAB PO SCH (20:30)
[2020-11-20] MEDS: TOPIRAMATE 50 MG TAB PO SCH (20:32)
[2020-11-20] MEDS: LORazepam 0.5 MG TAB PO PRN (23:56)
[2020-11-21] MEDS: POLYETHYLENE (MIRALAX) 17 GM PACK PO SCH ×2 (06:35→13:55)
--- NOTE | 2020-11-21 08:29 | Orthopedic Progress Note ---
Date of Service November 21, 2020 Assessment & Plan (1) Neurogenic claudication due to lumbar spinal stenosis: Patient is stable postop day #3. Her abdominal pain is subsiding but still has not yet had a bowel movement. Rating continue with mobilization efforts continue GI and DVT prophylaxis. Her hopes that she will be ready to be discharged home tomorrow. Admission and Anticipated Discharge Date Admission Date: November 18, 2020 Subjective Patient was seen bedside in room 383. She is postop day 1 3 status post lumbar decompression fusion from L4-S1. She had bouts of abdominal pain yesterday she has not yet had a bowel movement. She is not having any radicular complaints she has been up and mobilized. Her pain is moderately controlled. She denies any other numbness, tingling, or paresthesias. Physical Exam Physical Exam: On exam she is alert and oriented. Her LAKISHA drain is in place and has put out 20 cc of drainage this shift. Her abdomen soft nontender calves are supple nontender. Her strength and sensation are both intact. Results & Data ([facility]) Vital Signs (Past 12 Hours) Vital Signs Temp Pulse Pulse Resp BP BP Pulse Ox 11/21/20 07:30 36.8 C 84 18 109/71 92 11/20/20 22:35 36.7 C 91 H 20 133/81 94
[2020-11-21] MEDS: dexAMETHasone 8 MG in SYRINGE 0 ML IV SCH (09:00)
[2020-11-21] MEDS: ASPIRIN 81 MG ECTAB PO SCH (09:00)
[2020-11-21] MEDS: DULoxetine HCL 60 MG CAP PO SCH (09:00)
[2020-11-21] MEDS: METOPROLOL SUCC 50MG EXT REL TAB PO SCH (09:01)
[2020-11-21] MEDS: PANTOprazole 40 MG TAB PO SCH ×2 (09:02→20:42)
[2020-11-21] MEDS: NIFEdipine EXTENDED REL 30 MG TABCR PO SCH ×2 (09:02→20:42)
[2020-11-21] MEDS: HYDROmorphone INJ 1 MG/ML SYRINGE IV PRN ×4 (09:02→20:49)
--- NOTE | 2020-11-21 11:57 | Hospitalist Progress Note ---
Date of Service November 21, 2020 Assessment & Plan (1) S/P spinal surgery: 50yo F with a PMH of COPD, asthma, mood disorder, Jorge Luis's granulomatosis and other medical problems listed below who is s/p revision decompression with bilateral medial facetectomies and foraminotomies L3-4, L4-5 and L5-S1 and posterior spinal fusion L4-5 L5-S1 by Dr. Awad. POD #3 S/p revision decompression with bilateral medial facetectomies and foraminotomies L3-4, L4-5 and L5-S1 and posterior spinal fusion L4-5 L5-S1 by Dr. Awad. Per ortho for pain control, wound care, anticoagulation and activities Anemia likely due to acute blood loss + dilutional from IVF Hb 10.7 on 11/20/20 (was 13.4 on 11/04/20) Bisacodyl DE Continue laxatives for constipation (2) Hypertension: Controlled Continue home medications [metoprolol and nifedipine] (3) Chronic obstructive pulmonary disease: (4) Asthma: H/o tobacco use x 10 years, has since quit. Continue Wixela inh BID, albuterol inh and nebs PRN (5) Jorge Luis's granulomatosis: Follows with Dr. Alcantar, rheumatology in [place] (6) Migraine: Topomax HS and monthly Emgality injections for prophylaxis, sumatriptan PRN (7) Depression: (8) Anxiety: Continue duloxetine Admission and Anticipated Discharge Date Admission Date: November 18, 2020 Subjective Patient seen and examined. Reports surgical site pain is controlled. Reporting constipation. States that she is usually constipated and has not had bowel movements even prior to presentation. Passing flatus. No nausea vomiting at this time Review of Systems Review of Systems: All systems reviewed & are unremarkable except as noted in Subjective Physical Exam Constitutional: + well hydrated and + obese; no acute distress Eyes: PERRL, conjunctivae normal, anicteric sclerae ENMT: external ear and nose normal, oropharynx normal Respiratory: normal respiratory effort, lungs clear to auscultation Cardiovascular: Rate/Rhythm: regular rate and regular rhythm S1 S2 Gastrointestinal (Abdomen): normal bowel sounds, soft, nontender, no hepatosplenomegaly Musculoskeletal: Clean dressing over lower back with LAKISHA drain in situ Neurologic: PERRL, EOMI, accommodation nl, no face palsy, no dysarthria Psychiatric: A+Ox3, euthymic affect Results & Data Results & Data ([facility]) Vital Signs (Past 12 Hours) Vital Signs Temp Pulse Resp BP Pulse Ox 11/21/20 07:30 36.8 C 84 18 109/71 92
[2020-11-21] MEDS: FLUTICASONE/VILANTEROL 200/25MCG 14 PUFFS/INHALER INH SCH (14:23)
[2020-11-21] MEDS: oxyCODONE HCL IR 5 MG TAB (IMMEDIATE RELEASE) PO PRN ×2 (14:34→22:49)
[2020-11-21] MEDS: DOCUSATE SODIUM/SENNA 50/8.6MG TAB PO SCH (20:41)
[2020-11-21] MEDS: TOPIRAMATE 50 MG TAB PO SCH (20:42)
[2020-11-22] MEDS: oxyCODONE HCL IR 5 MG TAB (IMMEDIATE RELEASE) PO PRN ×2 (08:01→12:52)
[2020-11-22] MEDS: FLUTICASONE/VILANTEROL 200/25MCG 14 PUFFS/INHALER INH SCH (08:17)
[2020-11-22] MEDS: METOPROLOL SUCC 50MG EXT REL TAB PO SCH (09:43)
[2020-11-22] MEDS: ASPIRIN 81 MG ECTAB PO SCH (09:43)
[2020-11-22] MEDS: dexAMETHasone 8 MG in SYRINGE 0 ML IV SCH (09:43)
[2020-11-22] MEDS: DULoxetine HCL 60 MG CAP PO SCH (09:43)
[2020-11-22] MEDS: NIFEdipine EXTENDED REL 30 MG TABCR PO SCH (09:44)
[2020-11-22] MEDS: PANTOprazole 40 MG TAB PO SCH (09:44)
--- NOTE | 2020-11-22 11:56 | Hospitalist Progress Note ---
Date of Service November 22, 2020 Assessment & Plan (1) S/P spinal surgery: 50yo F with a PMH of COPD, asthma, mood disorder, Jorgel Uis's granulomatosis and other medical problems listed below who is s/p revision decompression with bilateral medial facetectomies and foraminotomies L3-4, L4-5 and L5-S1 and posterior spinal fusion L4-5 L5-S1 by Dr. Awad. POD #4 S/p revision decompression with bilateral medial facetectomies and foraminotomies L3-4, L4-5 and L5-S1 and posterior spinal fusion L4-5 L5-S1 by Dr. Awad. Per ortho for pain control, wound care, anticoagulation and activities Anemia likely due to acute blood loss + dilutional from IVF Last Hb 10.7 on 11/20/20 (was 13.4 on 11/04/20) (2) Hypertension: Controlled Continue home medications [metoprolol and nifedipine] (3) Chronic obstructive pulmonary disease: (4) Asthma: H/o tobacco use x 10 years, has since quit. Continue Wixela inh BID, albuterol inh and nebs PRN (5) Jorge Luis's granulomatosis: Follows with Dr. Alcantar, rheumatology in [place] (6) Migraine: Topomax HS and monthly Emgality injections for prophylaxis, sumatriptan PRN (7) Depression: (8) Anxiety: Continue duloxetine Patient is stable for discharge from medical standpoint To follow up with PCP and Surgeon Admission and Anticipated Discharge Date Admission Date: November 18, 2020 Subjective Patient seen and examined Denied any complaints except for some pain at surgical site with activity Constipation resolved Review of Systems Review of Systems: All systems reviewed & are unremarkable except as noted in Subjective Physical Exam Constitutional: + well hydrated and + obese; no acute distress Eyes: PERRL, conjunctivae normal, anicteric sclerae ENMT: external ear and nose normal, oropharynx normal Respiratory: normal respiratory effort, lungs clear to auscultation Cardiovascular: Rate/Rhythm: regular rate and regular rhythm S1 S2 Gastrointestinal (Abdomen): normal bowel sounds, soft, nontender, no hepatosplenomegaly Musculoskeletal: Clean dressing over lower back Neurologic: PERRL, EOMI, accommodation nl, no face palsy, no dysarthria Psychiatric: A+Ox3, euthymic affect Results & Data Results & Data ([facility]) Vital Signs (Past 12 Hours) Vital Signs Temp Pulse Resp BP Pulse Ox 11/22/20 07:38 36.9 C 83 16 107/63 97
--- NOTE | 2020-11-22 12:26 | Discharge Summary ---
Date of Service November 22, 2020 Admission HPI Per Admitting Provider This is a 50-year-old female presents with chronic persistent back and leg pain. Failing extensive course of nonoperative care is here for surgical invention. Principal Diagnosis Lumbar spinal stenosis with neurogenic claudication Discharge Data Allergies Allergy/AdvReac Type Severity Reaction Status Date / Time bee venom protein (honey bee) Allergy Severe Anaphylaxis Verified 11/18/20 06:28 latex Allergy Severe Anaphylaxis Verified 11/18/20 06:28 Sulfa (Sulfonamide Allergy Intermediate Hives Verified 11/18/20 06:28 Antibiotics) corn Allergy Mild "severe Verified 11/18/20 06:28 stomach pains" Consultations 11/18/20 10:43 Consult Hospitalist Routine Procedures Performed Operation Date: 11/18/20 07:45 Actual Procedures p L4-S1 Decompression Fusion, Spinal Cord Monitoring, Placement of Interbody Cages and Crosslink - Hawk Awad DO Ordered Studies 11/18/20 07:45 FL lumbar spine 2-3V Routine Hospital Course (1) Neurogenic claudication due to lumbar spinal stenosis: Patient with lumbar decompression fusion tolerated as well as taken orthopedic for postoperative. Postop day and when she was up and ambulating place postop day #2 and 3 LAKISHA drain decreasing hopefully pain well controlled. Excellent strength testing. Subsequent discharge home. Discharge orders and instructions found in chart for further view. Total Time Total Time Spent Total Time Spent (In Minutes): 20 minutes Discharge Plan Discharge Items Patient Disposition: Home - Self-Care Reason For Visit: Spinal Stenosis Lumbar Region without Neurogenic Discharge Diagnosis: Lumbar spinal stenosis with neurogenic claudication Activity: Resume your previous activity Non-emergency contact: Primary Care Provider Call non-emergency contact if: you have any medication questions Follow-up/Referrals: Alvaro Mark [Primary Care Provider] - Diet: Regular Addtl Attending Provider Instructions: ACTIVITY RECOMMENDATIONS: SELF CARE INSTRUCTIONS AFTER THORACIC/LUMBAR FUSIONS 1. You may walk to your tolerance. It is good exercise for your legs and back. Expect some back and intermittent leg aches and pains. 2. You may perform "counter-top" level activities (make a sandwich, talia with a project, etc.). 3. No bending or lifting of more than 10 pounds or back twisting of any nature (roll like a log when turning in bed). 4. You may ride in a car for 20-30 minutes at a time. No driving until after your first visit with your doctor. 5. Frequent changes of position and restricting sitting to 30 minutes at a time will help limit the amount of back spasms and stiffness you may experience. 6. You may discontinue the use of ambulatory aids (cane, crutches, etc.) once your strength and confidence allow. 7. You may [employer] the shower and let water strike your incision when you arrive home at least once daily. Do not take a tub bath, sit in a hot tub or go into a swimming pool until after your first recheck in the office. SPECIAL CARE INSTRUCTIONS: VERY IMPORTANT TO READ AND REVIEW A. Your surgical incision has been closed with a cosmetic suture under the skin that will dissolve in about 6 weeks. In 14 days, you can use a pair of clean scissors and cut the suture that is left outside of the skin at the ends of your incision. 1. The small skin tapes can be removed 7 days after surgery if they have not fallen off by that point. 2. You may keep the wound open to air as much as possible to promote healing after post-op day number 5 unless told otherwise by your doctor. 3. If you think the wound looks like it is becoming infected (redness or worsening drainage) and/or you are experiencing fever, chill or worsening back pain and muscle spasms, contact the office so that we may evaluate you as soon as possible. B. Complications are uncommon, but please contact us if you have any signs or symptoms of: 1. wound infection (fever higher than 102.5 degrees F, redness, separation of wound, drainage, or increasing pain from the incision) 2. blood clots in legs (pain, swelling, redness and warmth in legs) 3. urinary tract infection (fever higher than 102.5 degrees F, burning upon urination or increased frequency of urination) 4. nerve problems (inability to walk on your toes or heels, numbness, loss of bowel or bladder control) 5. any other symptoms that concern you C. Please call the office at if you have any concerns or questions about your operation or recovery. D. No smoking! Smoking drastically decreases the chance of a solid fusion. E. Do not take any anti-inflammatory medications (Indocin, Advil, Motrin, Aspirin, Naprosyn, etc.) as these may inhibit the chance of a solid fusion. Tylenol is okay to take for pain. MANAGING PAIN AFTER SPINAL SURGERY 1. Narcotic medication is intended for short-term use and will be provided for surgical pain. Surgical pain usually lasts for a period of 4-6 weeks. Narcotic medication includes Percocet, Vicodin, Darvocet, Tylenol #3 or Lortab. 2. Longer-term pain is more appropriately treated with non-narcotic medication such as Tylenol ES. 3. Muscle spasm is not appropriately treated with narcotics. Muscle relaxers such as Soma, Flexeril or Skelaxin can be used along with Tylenol ES. 4. Remember that we all live with some "aches and pains". This is not unusual or uncommon after an injury or as we get older. a. Back pain is expected and may include muscle spasms for 4 to 6 weeks after surgery. The pain should gradually improve. If the pain worsens for no apparent reason, please contact the office. b. Intermittent leg pain may also be experienced and should not be concerned about unless it worsens for no apparent reason. If so, please contact the office. 5. We will provide appropriate medication within the normal guidelines of their prescribed use. We will also be very cautious and aware of potential abuse and extended duration of patients' medication needs. a. Pain medications are for your comfort and to assist with sleep and rest so that the tissue can heal. They are not provided in order to return to normal activity and should not be used through the day. To do so or worsening pain at night can result from ongoing tissue damage and development of tolerance to the prescribed medicine. 6. Please allow 2-3 days to process refills. Prescriptions will not be mailed but must be picked up at the office. FOLLOW UP VISIT: Keep your scheduled follow-up appointment. Any questions, please call the office at . Pending Studies at Discharge: No Stand-Alone Forms: My [employer], Smoking Cessation Medications and DC Order Prescriptions: New tramadol 50 mg tablet 50 mg PO Q6H PRN (Reason: pain, moderate) Qty: 30 RF: 0 oxycodone 5 mg tablet 5 mg PO Q6H PRN (Reason: pain, severe) Qty: 30 RF: 0 Continued nifedipine [Procardia XL] 30 mg Tablet Extended Release 24hr 30 mg PO BID RF: 0 fluticasone propion-salmeterol [Wixela Inhub] 250-50 mcg/dose Blister With Device 1 inh INHALATION BID RF: 0 metoprolol succinate 50 mg Tablet Extended Release 24 Hr 50 mg PO QAM RF: 0 albuterol sulfate 1.25 mg/3 mL Solution For Nebulization 1.25 mg INHALATION QID PRN (Reason: Shortness Of Breath) RF: 0 sumatriptan succinate 100 mg Tablet 100 mg PO UD PRN (Reason: Migraine Headache) RF: 0 omeprazole 40 mg Capsule,Delayed Release(Dr/Ec) 40 mg PO BID RF: 0 aspirin 81 mg Tablet,Delayed Release (Dr/Ec) 81 mg PO QAM RF: 0 topiramate [Topamax] 50 mg Tablet 50 mg PO HS RF: 0 duloxetine [Cymbalta] 60 mg Capsule,Delayed Release(Dr/Ec) 60 mg PO QAM RF: 0 albuterol sulfate 90 mcg/actuation Aerosol Powdr Breath Activated 2 inh INHALATION Q4H PRN (Reason: Shortness Of Breath) RF: 0 Emgality Syringe 120 mg/mL Syringe 120 mg SUBCUT MONTHLY RF: 0 Discharge Orders: Discharge Order (Routine); Ordered 11/22/20 Ordered By: Hawk Awad Admission Data Admit Date/Time: 11/18/20 10:43 Attending Provider: Hawk Awad Admit Provider: Hawk Awad Primary Care Provider: Alvaro Mark Other Providers: Mary Barnard ; Beckie Bui I. ; [facility] ; [facility]
== END 2020-11-22 13:40 | disposition home or self-care (01) | DRG 454 ==
LOC: ASU 05:51 → 3N 10:43